=== PATIENT | female | born 1990 | race Caucasian/White ===

== ENCOUNTER 2021-07-02 22:29 | Emergency (ER) | payer MEDICAID ==
[2021-07-02 22:41] VITALS: BP 119/75; PULSE 89
--- NOTE | 2021-07-02 22:54 | EDM.PDOC ---
ED HPI GENERAL MEDICAL PROBLEM - General Chief Complaint: Abdominal Pain Stated Complaint: ABDOMINAL PAIN Time Seen by Provider: 07/02/21 22:53 Source of Information: Reports: Patient, RN Notes Reviewed - History of Present Illness INITIAL COMMENTS - FREE TEXT/NARRATIVE: 30 yr old female with lower abd discomfort that started about 8 to 10 hrs ago, was quite severe this past afternoon 4 to 5 hrs ago, now still present but mild. No nausea, vomting or diarrihea. No voiding sx. Lower Abdomen Pain Score (Numeric/FACES): 8 - Related Data Allergies Allergy/AdvReac Type Severity Reaction Status Date / Time cephalexin Allergy Rash Verified 07/02/21 22:35 Home Meds: Home Meds Acetaminophen [Tylenol] 650 mg PO Q4H PRN #0 tablet 07/19/16 [Rx] Benzocaine/Menthol [Dermoplast Pain Relief [place]] 1 spray TOP ASDIRECTED PRN #0 canister 07/19/16 [Rx] Docusate Sodium [Colace] 100 mg PO BID PRN #0 cap 07/19/16 [Rx] Ibuprofen [IJD: Ibuprofen] 200 - 600 mg PO Q6H PRN #0 tablet 07/19/16 [Rx] witch Marley [Tucks] 1 pad TOP ASDIRECTED PRN #0 pad 07/19/16 [Rx] Past Medical History - Past Health History Medical/Surgical History: Denies Medical/Surgical History Gastrointestinal History: Reports: GERD, Other (See Below) Other Gastrointestinal History: during [employer] History: Reports: , Spontaneous Endocrine/Metabolic History: Reports: Obesity/BMI 30+ - Infectious Disease History Infectious Disease History: Reports: Chicken Pox - Past Surgical History GI Surgical History: Reports: None Social & Family History - Family History Family Medical History: No Pertinent Family History - Tobacco Use Tobacco Use Status *Q: Current Every Day Tobacco User Years of Tobacco use: 14 Packs/Tins Daily: 0.5 - Caffeine Use Caffeine Use: Reports: Coffee - Recreational Drug Use Recreational Drug Use: No ED ROS GENERAL - Review of Systems Review Of Systems: See Below Constitutional: Denies: Fever, Chills, Diaphoresis HEENT: Reports: No Symptoms Respiratory: Denies: Shortness of Breath, Pleuritic Chest Pain Cardiovascular: Denies: Chest Pain GI/Abdominal: Reports: Abdominal Pain (lower mid pelvic). Denies: Diarrhea, Nausea, Vomiting Musculoskeletal: Denies: Back Pain Skin: Reports: No Symptoms Neurological: Reports: No Symptoms ED EXAM, GI/ABD - Physical Exam Exam: See Below General Appearance: Alert, No Apparent Distress Head: Atraumatic Neck: Supple Respiratory/Chest: No Respiratory Distress, Lungs Clear, Normal Breath Sounds Cardiovascular: Regular Rate, Rhythm GI/Abdominal Exam: Soft, Tender (very mild tenderness lower mid abd and pelvis, RLQ nontender at time of exam, upper abd nontender) Back Exam: No: CVA Tenderness (L), CVA Tenderness (R) Extremities: Normal Inspection Neurological: Alert, Oriented, No Motor/Sensory Deficits Skin Exam: Warm, Dry, Normal Color Course - Vital Signs Last Recorded V/S: Last Vital Signs Temp 97.2 F 07/02/21 22:39 Pulse 89 07/02/21 22:39 Resp 18 07/02/21 22:39 BP 119/75 07/02/21 22:39 Pulse Ox 100 07/02/21 22:39 - Orders/Labs/Meds Labs: Laboratory Tests 07/02/21 07/02/21 07/02/21 Range/Units 23:20 23:20 23:30 WBC 12.77 H (3.98-10.04) K/mm3 RBC 4.44 (3.98-5.22) M/mm3 Hgb 13.6 (11.2-15.7) gm/dl Hct 39.7 (34.1-44.9) % MCV 89.4 (79.4-94.8) fl MCH 30.6 (25.6-32.2) pg MCHC 34.3 (32.2-35.5) g/dl RDW Std Deviation 43.9 (36.4-46.3) fL Plt Count 316 (182-369) K/mm3 MPV 8.9 L (9.4-12.3) fl Neut % (Auto) 55.3 (34.0-71.1) % Lymph % (Auto) 35.0 (19.3-51.7) % [place] % (Auto) 7.0 (4.7-12.5) % Eos % (Auto) 2.0 (0.7-5.8) Baso % (Auto) 0.2 (0.1-1.2) % Neut # (Auto) 7.05 H (1.56-6.13) K/mm3 Lymph # (Auto) 4.47 H (1.18-3.74) K/mm3 [place] # (Auto) 0.90 H (0.24-0.36) K/mm3 Eos # (Auto) 0.26 (0.04-0.36) K/mm3 Baso # (Auto) 0.03 (0.01-0.08) K/mm3 Manual Slide Review Normal smear HCG, Qual Negative (NEGATIVE) Urine Color Yellow (Yellow) Urine Appearance Clear (Clear) Urine pH 6.0 (5.0-8.0) Ur Specific [place] > or = 1.030 (1.005-1.030) Urine Protein Negative (Negative) Urine Glucose (UA) Negative (Negative) Urine Ketones Negative (Negative) Urine Occult Blood Negative (Negative) Urine Nitrite Negative (Negative) Urine Bilirubin Negative (Negative) Urine Urobilinogen 0.2 (0.2-1.0) Ur Leukocyte Esterase Trace H (Negative) Urine RBC 0-5 (0-5) /hpf Urine WBC 0-5 (0-5) /hpf Ur Squamous Epith Cells 0-5 (0-5) /hpf Urine Bacteria Few (FEW) /hpf Urine Mucus Few (FEW) /hpf - Re-Assessments/Exams Free Text/Narrative Re-Assessment/Exam: 07/03/21 02:01 WBC 12,700, Ua nl, Hcg neg. Repeat exam also does not show any sign for acute abd. Pt has been resting comfortably while awaiting labwork. Have ordered outpatient US. suspect this is probable an ovarian cyst. Discharge istr. as documented. Departure - Departure Time of Disposition: 00:30 Disposition: Home, Self-Care 01 Condition: Fair Clinical Impression: Pelvic pain - Discharge Information Instructions: Pelvic Pain, Female, [id number] Referrals: Ilsa Estes MD [Primary Care Provider] - Forms: ED Department Discharge Additional Instructions: Order has been written for outpatient US. Radiology will call you this morning to set up a time for that. Clear liquids until tomorrow afternoon. Tylenol q 6 to 8 hr as needed. Follow up with your regular medical provider for results of US. Call for appt. Return to ED if symptoms worsening in any way, especially as discussed if pain localizing to R lower abd. Sepsis Event Note (ED) - Evaluation Sepsis Screening Result: No Definite Risk - Focused Exam Vital Signs: Vital Signs Temp Pulse Resp BP Pulse Ox 07/02/21 22:39 97.2 F 89 18 119/75 100
== END 2021-07-03 00:30 | disposition home or self-care (01) ==
LOC: JD.ED 22:29
DX: R10.2 Pelvic and perineal pain (principal); E66.9 Obesity, unspecified; Z68.31 Body mass index [BMI] 31.0-31.9, adult; Z88.1 Allergy status to other antibiotic agents; Z72.0 Tobacco use
CPT/HCPCS: 36415; 81001; 84703; 85025; 99283; 99284